=== PATIENT | female | born 1955 | race Caucasian/White ===

== ENCOUNTER 2016-09-06 14:19 | Outpatient (CLI) | payer OTHER ==
--- NOTE | 2016-09-06 16:54 | DIAGNOSTIC IMAGING REPORT ---
PROCEDURE: US ABDOMEN ULTRASOUND-COMPLETE INDICATION: ELEVATED LIVER FUNCTION TESTS TECHNIQUE: Arthur scale and color Doppler sonographic images of the abdomen were obtained. COMPARISON: Abdominal ultrasound 05/21/2011. FINDINGS: Multiple mobile gallstones. There is no wall thickening or pericholecystic fluid. Normal CBD measures 4.5 mm. Negative Horvath's sign. Liver measures 18.8 cm with increased echogenicity. Pancreas normal as visualized. Several splenic echogenic foci suggestive of calcified granulomas. Aorta and IVC are patent. Normal hepatopetal flow. Normal kidneys. Right kidney measures 11.6 cm and left 11.1 cm. IMPRESSION: 1. Cholelithiasis 2. Hepatic steatosis versus intrinsic liver disease
--- NOTE | 2016-09-13 11:46 | DIAGNOSTIC IMAGING REPORT ---
PROCEDURE: MG B/L IMPLANTS - SCREENING INDICATION: SCREENING. Aunt and sister with a history of breast cancer. TECHNIQUE: CC and MLO digital views of each breast with CC and MLO digital implant-displacement views. COMPARISON: Mammograms 06/30/2012 and 01/21/2008 . FINDINGS: Computer-aided detection applied. Mildly dense pattern. Intact bilateral breast implants. Dystrophic calcifications present. No significant interval change IMPRESSION: 1. Negative mammogram RESULT CODE: 1- Negative. A. A negative report should not delay biopsy if a dominant or clinically suspicious mass is present. 10-15% of cancers are not identified by x-ray. B. A negative report may reinforce clinical impression. C. Adenosis and dense breasts may obscure an underlying neoplasm. D. False positive reports average 6-10%. E.. A yearly screening mammogram is recommended. A reminder letter will be scheduled.
== END 2016-09-06 23:00 | disposition home or self-care (01) ==
LOC: US SRH 14:19
DX: K80.20 Calculus of gallbladder without cholecystitis without obstruction (principal); Z12.31 Encounter for screening mammogram for malignant neoplasm of breast; Z80.3 Family history of malignant neoplasm of breast